=== PATIENT | male | born 1975 | race Caucasian/White ===

== ENCOUNTER → 2020-12-25 11:37 | Outpatient (CLI) | payer OTHER, SELFPAY ==
--- NOTE | 2020-12-25 11:50 | RAD_ITS ---
STUDY: X-RAY - CERVICAL SPINE REASON FOR EXAM: Male, 45 years old. CERVICALGIA TECHNIQUE: 5 view(s) of the cervical spine were obtained. COMPARISON: None FINDINGS: Normal anterior atlantoaxial articulation. Normal odontoid process. Normal cervical lordosis. Normal vertebral bodies and endplates. Focal disc space narrowing at C5/C6 consistent with degenerative disc disease. Normal visualized intervertebral neuroforamina. The soft tissue structures are unremarkable. RAD/Cerv Spine 4 or 5 Views IMPRESSION: Focal degenerative disc disease at C5/C6. MRI may be useful. Electronically Signed: Connor Desai MD at 8:08 EDT Tel , Service support ,
== END ==
PROVIDERS: PCP Family Medicine
DX: M54.2 Cervicalgia (principal); M99.01 Segmental and somatic dysfunction of cervical region; S13.4XXA Sprain of ligaments of cervical spine, initial encounter; X58.XXXA Exposure to other specified factors, initial encounter; Y93.9 Activity, unspecified; Y92.9 Unspecified place or not applicable; Y99.9 Unspecified external cause status
CPT/HCPCS: 72050

== ENCOUNTER → 2021-01-18 16:06 | Outpatient (CLI) | payer OTHER, SELFPAY ==
--- NOTE | 2021-01-18 16:29 | MRI_ITS ---
We are attempting to reach an attending provider to discuss findings. An addendum with communication details will be sent when the communication is complete. STUDY: MRI BRAIN WITH AND WITHOUT CONTRAST REASON FOR EXAM: Male, 45 years old. DIZZINESS x 1-2 months TECHNIQUE: Standardized multiplanar fat and water weighted pulse sequences were obtained. iv dotarem 18cc was administered for the contrast portion of the examination. COMPARISON: None. FINDINGS: There is an ill-defined lesion centered on the left cerebellum extending across the midline into the right cerebellum and into the left middle cerebellar peduncle and posterior lateral wendy. There is mass effect on the fourth ventricle and bilateral, left greater than right tonsillar herniation. Medulla and upper cervical cord are mildly compressed. Foramen magnum is crowded with effacement of CSF. The lesion has heterogeneous intermediate to slightly increased signal on T2/FLAIR with heterogeneous iso and low signal on T1. The lesion has normal diffusion signal. There is heterogeneous superficial irregular linear enhancement along the folia of the cerebellum with the bulk of the lesion not enhancing. Exact separation between the lesion and surrounding vasogenic edema is difficult. Approximate lesion size is 5.6 cm AP by 5.3 cm transverse. There is moderate hydrocephalus involving the third and lateral ventricles. Supratentorial cisterns are preserved. There is no cerebral cortical crowding. Major arterial flow structures are preserved. MRI/Brain W/WO Contrast IMPRESSION: 1. 5 x 5 cm left cerebellar lesion with tonsillar herniation. Emergency neurosurgical consultation advised. 2. Moderate hydrocephalus. 3. No acute infarct. 4. Differential diagnosis is metastasis, unusual demyelinating lesion/ADEM, viral cerebellitis, atypical Lhermitte John disease. 5. No additional lesions. Electronically Signed: Adolfo El MD at 18:17 EDT Tel , Service support ,
== END ==
PROVIDERS: PCP Family Medicine; Referring Provider Otolaryngology; Visit Provider Otolaryngology
DX: R42 Dizziness and giddiness (principal); H93.19 Tinnitus, unspecified ear
CPT/HCPCS: 70553; A9575

== ENCOUNTER → 2022-07-29 | Outpatient (CLI) | payer OTHER, SELFPAY ==
[2022-07-29 08:10] LABS: Free T3 2.5 pg/mL (2.18-3.98); PSA,Total- Diagnostic 0.67 ng/mL (0.0-4.0); T4 Free Direct 0.99 ng/dL (0.76-1.46)
[2022-07-30 12:11] LABS: Thyroid Peroxidase AB 56 IU/mL (0-34)
== END | disposition home or self-care (01) ==
LOC: LAB 07:11
PROVIDERS: PCP Physician Assistant; Referring Provider Preventive Medicine Public Health & General Preventive Medicine; Visit Provider Preventive Medicine Public Health & General Preventive Medicine
DX: E03.9 Hypothyroidism, unspecified (principal); E23.1 Drug-induced hypopituitarism; N40.1 Benign prostatic hyperplasia with lower urinary tract symptoms; R97.20 Elevated prostate specific antigen [PSA]
CPT/HCPCS: 36415; 84153; 84403; 84439; 84443; 84481; 86376

== ENCOUNTER → 2023-01-12 | Outpatient (CLI) | payer OTHER, SELFPAY ==
[2023-01-12 08:09] LABS: Absolute Lymphocyte Count 0.69 X10^3/uL (0.83-4.51); Absolute Neutrophil Count 4.1 X10^3/uL (2.0-7.7); Basophil# 0.06 X10^3/uL; Basophil% 1.1 % (0-1); Eosinophil# 0.21 X10^3/uL; Eosinophils% 3.7 % (0-5); Hematocrit 45.6 % (40-54); Hemoglobin 15.2 g/dL (13.0-16.5); Lymphocyte # 0.69 X10^3/ul (0.83-4.51); Lymphocyte % 12.3 % (19-41); Mean Corp Hgb Conc 33.3 g/dL (32-36); Mean Corpuscular Hgb 31.2 pg (27.0-32.0); Mean Corpuscular Volume 93.6 fL (80-94); Mean Platelet Vol. 10.1 fl (6.2-12.0); Monocyte# 0.53 X10^3/uL; Monocyte% 9.4 % (0-10); NRBC Flagged by Analyzer 0 % (0-5); Neutrophil # 4.06 X10^3/uL (2.7-7.7); Neutrophil % 72.4 % (47-70); Platelet Count 179 K/mm3 (150-450); RBC Distribution Width CV 14.6 % (11.6-14.6); RBC Distribution Width SD 49.6 fl (35.1-43.9); Red Blood Count 4.87 M/mm3 (4.6-6.2); White Blood Count 5.6 K/mm3 (4.4-11.0)
[2023-01-12 12:23] LABS: ALB/GLOB Ratio 1.2 RATIO (0.9-2.4); AST(SGOT) 11 U/L (15-37); Alanine Aminotransfer ALT/SGPT 23 U/L (16-61); Albumin, Serum 4.1 g/dL (3.2-5.0); Alkaline Phosphatase 69 U/L (45-117); Anion Gap 8 (5-15); BUN 16 mg/dL (7-18); BUN/Creat Ratio 21.2 RATIO (10-20); Chloride 105 mmol/L (98-107); Creatinine, Serum 0.75 mg/dL (0.70-1.30); EST Glomerular Filtration Rate 118 mL/min (>60); Est Glom Filt Rate - Afr Amer 142 mL/min (>60); Estradiol 21.1 pg/mL; Free T3 2.3 pg/mL (2.18-3.98); Globulin 3.4 g/dL (2.2-4.2); Glucose 109 mg/dL (74-106); Protein, Total 7.5 g/dL (6.4-8.2); Sodium Level 140 mmol/L (136-145); T4 Free Direct 0.95 ng/dL (0.76-1.46)
[2023-01-16 11:09] LABS: PSA, Free 0.17 ng/mL; PSA, Free % 28.9 % (.); PSA, Total Ultrasensitive 0.588 ng/mL (0.000-4.000); Testosterone, % Free 1.48 % (1.50-4.20); Testosterone, Free 8.08 ng/dL (5.00-21.00); Testosterone, Total 546 ng/dL (264-916); Thyroid Peroxidase AB 101 IU/mL (0-34)
== END | disposition home or self-care (01) ==
LOC: LAB 07:17
PROVIDERS: PCP Physician Assistant; Visit Provider Preventive Medicine Public Health & General Preventive Medicine
DX: N40.1 Benign prostatic hyperplasia with lower urinary tract symptoms (principal); R97.20 Elevated prostate specific antigen [PSA]; E03.9 Hypothyroidism, unspecified; E29.1 Testicular hypofunction
CPT/HCPCS: 36415; 80053; 82670; 84153; 84154; 84402; 84403; 84439; 84443; 84481; 85025; 86376